=== PATIENT | male | born 1975 | race Native Hawaiian/Other Pacific Islander ===

== ENCOUNTER 2016-05-21 09:35 | Observation (INO) | payer OTHER ==
[~2016-05-21] VITALS: Ht 177.8 cm; Wt 108.4 kg
[2016-05-21 11:43] LABS: PLATELET COUNT 237 K/uL (142-355)
[2016-05-21 11:56] LABS: POTASSIUM 4.3 mmol/L (3.6-5.2)
[2016-05-21 12:00] VITALS: BP 127/75; TEMP 98.5
[2016-05-21 12:18] VITALS: BP 149/88; TEMP 98.5; Ht 177.8 cm; Wt 108.4 kg
[2016-05-21 16:00] VITALS: BP 125/76; TEMP 98.2
[2016-05-21 20:00] VITALS: BP 139/95; TEMP 98.7
[2016-05-22] VITALS: BP 128/78; TEMP 98
[2016-05-22 04:00] VITALS: BP 143/93; TEMP 98.1
--- NOTE | 2016-05-22 06:22 | NUR ---
05/22/16 0545 URINE STRAINED NO STONES SEEN.CC
[2016-05-22 08:00] VITALS: BP 116/64; TEMP 98.3
[2016-05-22 10:22] LABS: PLATELET COUNT 230 K/uL (142-355)
[2016-05-22 10:40] LABS: POTASSIUM 3.8 mmol/L (3.6-5.2)
[2016-05-22 12:00] VITALS: BP 148/97; TEMP 98.6
[2016-05-22 16:00] VITALS: BP 152/93; TEMP 97.9
== END 2016-05-22 19:37 | disposition home or self-care (01) ==
LOC: MED/SURG 09:35
PROVIDERS: ADMIT Family Medicine
DX: N20.0 Calculus of kidney (principal); E86.0 Dehydration
CPT/HCPCS: 36415; 80053; 81000; 84550; 85027; 87040; 96360; 96361; 96375; 99220; G0378; G0379; J1885